=== PATIENT | male | born 2005 | race Hispanic/Latino ===

== ENCOUNTER 2024-03-16 14:48 | Emergency (ER) | payer SELFPAY ==
[2024-03-16] MEDS ORDERED: Boostrix 0.5 ML (Tdap) VIAL (>/=7 yrs of age) ONE (14:57)
[2024-03-16] MEDS ORDERED: Lidocaine 1% PF 5 ML VIAL ONE (14:57)
[2024-03-16] MEDS ORDERED: Bacitracin 1 PK ONE (14:57)
== END 2024-03-16 15:44 | disposition home or self-care (01) ==
LOC: MADERS 14:48
DX: S61.216A Laceration without foreign body of right little finger without damage to nail, initial encounter (principal); W27.4XXA Contact with kitchen utensil, initial encounter
CPT/HCPCS: 12001; 90471; 90715